=== PATIENT | female | born 1985 | race Hispanic/Latino ===

== ENCOUNTER 2018-02-28 17:55 | Emergency (ER) | payer OTHER ==
[~2018-02-28] VITALS: Ht 160 cm; Wt 68.0 kg
--- OUTSIDE RECORDS SUMMARY | 2018-02-28 17:57 | XMS REPORT | Clinical Summary ---
Author Author [facility] Organization [facility] Address Unknown Phone Unavailable Care Team Providers Care Mill Manager Name Role Phone PCP Unavailable Allergies Active Allergy Reactions Severity Noted Date Comments Ibuprofen Swelling Medium 12/24/2017 "My face swells up." Metoclopramide Hcl Other (See Comments) Low 12/24/2017 "anxitey, anger." Ketorolac GI Intolerance Low 12/24/2017 "cramps and diarhea." Current Medications Prescription Sig. Disp. Refills Start End Date Status Date methocarbamol (ROBAXIN) Take 1 tablet (500 mg 20 tablet 0 12/26/19 Active 500 MG tablet total) by mouth 4 (four) 18 times a day as needed for muscle spasms for up to 20 doses. traMADol (ULTRAM) 50 mg Take 1 tablet (50 mg 10 tablet 0 12/26/19 12/29/19 tablet total) by mouth every 6 18 18 (six) hours as needed for moderate pain for up to 10 doses. Active Problems Not on file Encounters Date Type Specialty Care Team Description 12/24/2017 Emergency Emergency Medicine Michel Galeano, MARGE-C Acute left-sided low back - Xin Palmer MD pain with left-sided 12/25/2017 sciatica (Primary Dx) after 02/27/2017 Social History Tobacco Use Types Packs/Day Years Used Date Never Smoker Smokeless Tobacco: Never Used Alcohol Use Drinks/Week oz/Week Comments No Sex Assigned at Date Recorded Not on file Last Filed Vital Signs Vital Sign Reading Time Taken Blood Pressure 108/68 12/24/2017 11:42 PM CDT Pulse 86 12/24/2017 11:42 PM CDT Temperature 36.9 C (98.4 F) 12/24/2017 11:42 PM CDT Respiratory Rate 16 12/24/2017 11:42 PM CDT Oxygen Saturation 100% 12/24/2017 11:42 PM CDT Inhaled Oxygen - - Concentration Weight 66.2 kg (146 lb) 12/24/2017 11:39 PM CDT Height 157.5 cm (5' 2") 12/24/2017 11:39 PM CDT Body Mass Index 26.7 12/24/2017 11:39 PM CDT Plan of Treatment Not on file Procedures Procedure Name Priority Date/Time Associated Diagnosis Comments URINALYSIS SCREEN AND Routine 12/25/2017 Results for this MICROSCOPY, WITH REFLEX 12:50 AM CDT procedure are in the TO CULTURE results section. HCG QUALITATIVE, URINE Routine 12/25/2017 Results for this SCREEN 12:50 AM CDT procedure are in the results section. after 02/27/2017 Results * Urinalysis screen and microscopy, with reflex to culture (12/25/2017 12:50 AM) Specimen site Clean catch [facility] DEPARTMENT OF PATHOLOGY AND GENOMIC MEDICINE Color, UA Yellow [facility] DEPARTMENT OF PATHOLOGY AND GENOMIC MEDICINE Appearance, UA Clear [facility] DEPARTMENT OF PATHOLOGY AND GENOMIC MEDICINE Specific gravity, UA 1.012 1.001 - 1.035 [facility] DEPARTMENT OF PATHOLOGY AND GENOMIC MEDICINE pH, UA 6.0 5.0 - 8.5 [facility] DEPARTMENT OF PATHOLOGY AND GENOMIC MEDICINE Protein, UA Negative Negative [facility] DEPARTMENT OF PATHOLOGY AND GENOMIC MEDICINE Glucose, UA Negative Negative [facility] DEPARTMENT OF PATHOLOGY AND GENOMIC MEDICINE Ketones, UA Negative Negative [facility] DEPARTMENT OF PATHOLOGY AND GENOMIC MEDICINE Bilirubin, UA Negative Negative [facility] DEPARTMENT OF PATHOLOGY AND GENOMIC MEDICINE Blood, UA Negative Negative [facility] DEPARTMENT OF PATHOLOGY AND GENOMIC MEDICINE Nitrite, UA Negative Negative [facility] DEPARTMENT OF PATHOLOGY AND GENOMIC MEDICINE Urobilinogen, UA Negative <2.0 [facility] DEPARTMENT OF PATHOLOGY AND GENOMIC MEDICINE Leukocyte esterase, UA Negative Negative [facility] DEPARTMENT OF PATHOLOGY AND GENOMIC MEDICINE Epithelial cells, UA Many /HPF [facility] DEPARTMENT OF PATHOLOGY AND GENOMIC MEDICINE Round epithelial cells, Few 0 - 1 /HPF [facility] DEPARTMENT OF UA PATHOLOGY AND GENOMIC MEDICINE WBC, UA 0-5 0 - 4 /HPF [facility] DEPARTMENT OF PATHOLOGY AND GENOMIC MEDICINE RBC, UA 0-5 0 - 5 /HPF [facility] DEPARTMENT OF PATHOLOGY AND GENOMIC MEDICINE Bacteria, UA Trace None seen [facility] DEPARTMENT OF PATHOLOGY AND GENOMIC MEDICINE Yeast, UA None seen [facility] DEPARTMENT OF PATHOLOGY AND GENOMIC MEDICINE Yeast with pseudohyphae, None seen [facility] DEPARTMENT OF PATHOLOGY AND GENOMIC MEDICINE Specimen Urine Performing Organization Address City/[facility]/Zipcode Phone Number [facility] [place] [address] [place] [address] PATHOLOGY AND GENOMIC MEDICINE * hCG qualitative, urine screen (12/25/2017 12:50 AM) hCG qualitative, urine Negative Negative [facility] DEPARTMENT OF Comment: PATHOLOGY AND The manufacturers stated GENOMIC MEDICINE sensitivity of HcG test for serum is >/=10 mIU/ml and urine is >/=20mIU/ml. Specimen Urine Performing Organization Address [facility] Phone Number [facility] [place] [address] [place] [address] PATHOLOGY AND GENOMIC MEDICINE after 02/27/2017 Insurance Payer Benefit Subscriber ID Type Phone Address Plan / Group MEDICAID MEDICAID xxxxxxxxx Medicaid
--- OUTSIDE RECORDS SUMMARY | 2018-02-28 17:58 | XMS REPORT | Summary of Care ---
Author Author [facility] Organization [facility] Address Unknown Phone Unavailable Encounter NATANAEL Rogel(DALTON) [id number] Date(s): 02/20/15 - 02/20/15 [facility] [address], [place], [place] [address]- [phone] Discharge Diagnosis: Acute back pain Discharge Disposition: Home Attending Physician: Ovi Gomze MD Vital Signs Most recent to 1 2 oldest [Reference Range]: Temperature Oral 98 DegF 98.2 DegF [96.4-99.1 DegF] (02/20/15 3:10 PM) (02/20/15 10:41 AM) Blood Pressure 115/76 mmHg 128/77 mmHg [90-140/60-90 mmHg] (02/20/15 3:10 PM) (02/20/15 10:41 AM) Respiratory Rate 18 BRMIN 18 BRMIN [14-20 BRMIN] (02/20/15 3:10 PM) (02/20/15 10:41 AM) Peripheral Pulse 70 bpm 73 bpm Rate [60-100 bpm] (02/20/15 3:10 PM) (02/20/15 10:41 AM) Weight 75.455 kg (02/20/15 10:41 AM) Problem List Condition Effective Dates Status Health Status Informant Chronic back Active pain(Confirmed) Allergies, Adverse Reactions, Alerts Substance Reaction Severity Status Reglan Active Medications [place] 10/325 oral tablet 1 tab, Route: PO, Drug Form: TAB, Dosing Weight 75.455, kg, ONCE, STAT, Start da te: 02/20/15 12:20:00, Stop date: 02/20/15 12:20:00 Start Date: 02/20/15 Stop Date: 02/20/15 Status: Completed Saline Flush 0.9% 10 mL, Route: IVP, Drug Form: INJ, Dosing Weight 75.455, kg, PRN, PRN Line Flush , Start date: 02/20/15 11:01:00, Duration: 1 doses or times, Stop date: Limited # of times Notes: (Same as: BD Posiflush) Start Date: 02/20/15 Stop Date: 02/20/15 Status: Discontinued tramadol 50 mg oral tablet 50 mg=1 tab, PO, Q6H, PRN Pain, X 10 day, # 24 tab, 0 Refill(s) Start Date: 02/20/15 Stop Date: 03/02/15 Status: Ordered Results ELECTROLYTES Most recent to 1 oldest [Reference Range]: Sodium Lvl [135-145 140 mEq/L mEq/L] (02/20/15 11:29 AM) Potassium Lvl 3.9 mEq/L [3.5-5.1 mEq/L] (02/20/15 11:29 AM) Chloride Lvl [95-109 106 mEq/L mEq/L] (02/20/15 11:29 AM) CO2 [24-32 mEq/L] 28 mEq/L (02/20/15 11:29 AM) AGAP [10.0-20.0 9.9 mEq/L mEq/L] *LOW* (02/20/15 11:29 AM) CHEM PANEL Most recent to 1 oldest [Reference Range]: Creatinine Lvl 0.6 mg/dL [0.5-1.4 mg/dL] (02/20/15 11:29 AM) eGFR 125 mL/min/1.73m2 1 *NA* (02/20/15 11:29 AM) BUN [7-22 mg/dL] 7 mg/dL (02/20/15 11:29 AM) B/C Ratio [6-25] 12 (02/20/15 11:29 AM) Glucose Lvl [70-99 84 mg/dL mg/dL] (02/20/15 11:29 AM) Total Protein 7.1 g/dL [6.4-8.4 g/dL] (02/20/15 11:29 AM) Albumin Lvl [3.5-5.0 4.1 g/dL g/dL] (02/20/15 11:29 AM) Globulin [2.0-4.0 3.0 g/dL g/dL] (02/20/15 11:29 AM) A/G Ratio [0.7-1.6] 1.4 (02/20/15:29 AM) Calcium Lvl 8.7 mg/dL [8.5-10.5 mg/dL] (02/20/15 11:29 AM) ALT [0-65 unit/L] 38 unit/L (02/20/15:29 AM) AST [0-37 unit/L] 24 unit/L (02/20/15:29 AM) Alk Phos [39-136 96 unit/L unit/L] (02/20/15 11:29 AM) Bili Total [0.2-1.3 1.0 mg/dL mg/dL] (02/20/1529 AM) Lactic Acid Lvl 0.5 mMol/L [0.5-2.2 mMol/L] (02/20/15 11:29 AM) 1Result Comment: The eGFR is calculated using the CKD-EPI formula. In most young, healthy individuals the eGFR will be >90 mL/min/1.73m2. The eGFR declines with age. An eGFR of 60-89 may be normal in some populations, particularly the elderly, for whom the CKD-EPI formula has not been extensively validated. Use of the eGFR is not recommended in the following populations: Individuals with unstable creatinine concentrations, including patients and those with serious co-morbid conditions. Patients with extremes in muscle mass or diet. The data above are obtained from the National Kidney Disease Education Program ( NKDEP) which additionally recommends that when the eGFR is used in patients with extremes of body mass index for purposes of drug dosing, the eGFR should be mul tiplied by the estimated BMI. URINE CHEM Most recent to 1 oldest [Reference Range]: U Preg [Negative] Negative (02/20/15 12:25 PM) URINE AND STOOL Most recent to 1 oldest [Reference Range]: UA Turbidity [Clear] Clear (02/20/15 12:25 PM) UA Color [Yellow] Yellow *NA* (02/20/15 12:25 PM) UA pH [5.0-8.0] 6.5 (02/20/15 12:25 PM) UA Spec Grav 1.015 [<=1.030] (02/20/15 12:25 PM) UA Glucose [Negative Negative mg/dL mg/dL] (02/20/15 12:25 PM) UA Blood [Negative] Negative (02/20/15 12:25 PM) UA Ketones [Negative Negative mg/dL mg/dL] *NA* (02/20/15 12:25 PM) UA Protein [Negative Negative mg/dL mg/dL] (02/20/15 12:25 PM) UA Urobilinogen 0.2 EU/dL [0.1-1.0 EU/dL] (02/20/15 12:25 PM) UA Bili [Negative] Negative *NA* (02/20/15 12:25 PM) UA Leuk Est Negative [Negative] (02/20/15 12:25 PM) UA Nitrite Negative [Negative] (02/20/15 12:25 PM) UA WBC [None Seen] None Seen (02/20/15 12:25 PM) UA RBC [0-2] None Seen (02/20/15 12:25 PM) UA Bacteria [None None Seen Seen] (02/20/15 12:25 PM) UA Sq Epi [Few /LPF] Occasional /LPF (02/20/15 12:25 PM) HEMATOLOGY Most recent to 1 oldest [Reference Range]: WBC [3.7-10.4 K/CMM] 5.5 K/CMM (02/20/15 11:29 AM) RBC [4.20-5.40 3.90 M/CMM M/CMM] *LOW* (02/20/15 11:29 AM) Hgb [12.0-16.0 g/dL] 12.5 g/dL (02/20/15 11:29 AM) Hct [36.0-48.0 %] 37.4 % (02/20/15 11:29 AM) MCV [80.0-98.0 fL] 95.8 fL (02/20/15 11:29 AM) MCH [27.0-31.0 pg] 32.1 pg *HI* (02/20/15 11:29 AM) MCHC [32.0-36.0 33.5 g/dL g/dL] (02/20/15 11:29 AM) RDW [11.5-14.5 %] 13.8 % (02/20/15 1129 AM) Platelet [133-450 235 K/CMM K/CMM] (02/20/1529 AM) MPV [7.4-10.4 fL] 8.9 fL (02/20/15 AM) Segs [45.0-75.0 %] 64.5 % (02/20/15 AM) Lymphocytes 24.5 % [20.0-40.0 %] (02/20/15 AM) Monocytes [2.0-12.0 9.0 % %] (02/20/15 AM) Eosinophils [0.0-4.0 1.4 % %] (02/20/15 AM) Basophils [0.0-1.0 0.6 % %] (02/20/15 AM) Segs-Bands # 3.5 K/CMM [1.5-8.1 K/CMM] (02/20/1529 AM) Lymphocytes # 1.3 K/CMM [1.0-5.5 K/CMM] (02/20/15 11:29 AM) Monocytes # [0.0-0.8 0.5 K/CMM K/CMM] (02/20/15 11 AM) Eosinophils # 0.1 K/CMM [0.0-0.5 K/CMM] (02/20/15 1129 AM) Immunizations No data available for this section Procedures Procedure Date Related Diagnosis Body Site section Social History Social History Type Response Substance Abuse Use: None. Alcohol Current, Last use: occasional. Smoking Status Never smoker; Exposure to Tobacco Smoke None; Cigarette Smoking Last 365 Days No; Reg Smoking Cessation Counseling No Assessment and Plan No data available for this section
--- OUTSIDE RECORDS SUMMARY | 2018-02-28 17:58 | XMS REPORT | Summary of Care ---
Author Organization Unknown Address Unknown Phone Unavailable Encounter NATANAEL Rogel(DALTON) [id number] Date(s): 11/08/13 - 11/08/13 [facility] [id number] [place] [address] Discharge Diagnosis: Cholelithiasis Discharge Disposition: Home Physician Attending: Hasmukh Julian MD Reason for Visit RUQ/SIDE PAIN,NAUSEA Vital Signs Most recent to 1 oldest [Reference Range]: Height 160.02 cm (11/08/13 5:41 PM) Temperature Oral 98.4 DegF [96.4-99.1 DegF] (11/08/13 5:41 PM) Systolic Blood 119 mmHg Pressure [90-140 (11/08/13 5:41 PM) mmHg] Diastolic Blood 63 mmHg Pressure [60-90 (11/08/13 5:41 PM) mmHg] Respiratory Rate 18 BRMIN [14-20 BRMIN] (11/08/13 5:41 PM) Peripheral Pulse 69 bpm Rate [60-100 bpm] (11/08/13 5:41 PM) Weight 83.636 kg (11/08/13 5:41 PM) Body Mass Index 32.66 m2 (11/08/13 5:41 PM) Problem List No data available for this section Allergies, Adverse Reactions, Alerts Substance Reaction Severity Status NKDA Active Medications ketorolac 30 mg, 1 mL, Route: IVP, Drug form: INJ, ONCE, Dosing Weight 83.636, kg, Priorit y: STAT, Start date: 11/08/13 20:10:00, Stop date: 11/08/13 20:10:00 Notes: (Same as:Toradol) IV bolus must be given >15 seconds. Give IM administration slowly and deeply into the muscle. Not for use > 4 days Start Date: 11/08/13 Stop Date: 11/08/13 Status: Completed NS (Bolus) IV 1,000 mL, 1,000 ml/hr, Infuse Over: 1 hr, Route: IV, 1,000, Drug form: INJ, ONCE , Priority: STAT, Dosing Weight 83.636 kg, Start date: 11/08/13 20:10:00, Durati on: 1 doses or times, Stop date: 11/08/13 20:10:00 Start Date: 11/08/13 Stop Date: 11/08/13 Status: Completed Saline Flush 0.9% 5 mL, Route: IVP, Drug Form: INJ, Dosing Weight 83.636, kg, PRN, PRN Line Flush, Start date: 11/08/13 18:54:00, Duration: 24 hr, Stop date: 11/09/13 18:53:00 Notes: (Same as: BD Posiflush) Start Date: 11/08/13 Stop Date: 11/08/13 Status: Discontinued Ultram 50 mg oral tablet 50 mg=1 tab, PO, Q4H, pain, # 20 tab, 0 Refill(s) Start Date: 11/08/13 Status: Ordered Zofran 4 mg, 2 mL, Route: IVP, Drug form: INJ, ONCE, Dosing Weight 83.636, kg, Priority : STAT, Start date: 11/08/13 20:11:00, Stop date: 11/08/13 20:11:00 Notes: (Same as: Zofran) Start Date: 11/08/13 Stop Date: 11/08/13 Status: Completed Results ELECTROLYTES Most recent to 1 oldest [Reference Range]: Sodium Lvl [135-145 143 mEq/L mEq/L] (11/08/13 7:59 PM) Potassium Lvl 3.8 mEq/L [3.5-5.1 mEq/L] (11/08/13 7:59 PM) Chloride Lvl [95-109 108 mEq/L mEq/L] (11/08/13 7:59 PM) CO2 [24-32 mEq/L] 27 mEq/L (11/08/13 7:59 PM) AGAP [10.0-20.0 11.8 mEq/L mEq/L] (11/08/13 7:59 PM) CHEM PANEL Most recent to 1 oldest [Reference Range]: Creatinine Lvl 0.7 mg/dL [0.5-1.4 mg/dL] (11/08/13 7:59 PM) eGFR 120 mL/min/1.73m2 1 *NA* (11/08/13 7:59 PM) BUN [7-22 mg/dL] 16 mg/dL (11/08/13 7:59 PM) B/C Ratio [6-25] 23 (11/08/13 7:59 PM) Glucose Lvl [70-99 81 mg/dL 2 mg/dL] (11/08/13 7:59 PM) Total Protein 7.5 g/dL [6.4-8.4 g/dL] (11/08/13 7:59 PM) Albumin Lvl [3.5-5.0 4.2 g/dL g/dL] (11/08/13 7:59 PM) Globulin [2.0-4.0 3.3 g/dL g/dL] (11/08/13 7:59 PM) A/G Ratio [0.7-1.6] 1.3 (11/08/13 7:59 PM) Calcium Lvl 9.0 mg/dL [8.5-10.5 mg/dL] (11/08/13 7:59 PM) ALT [0-65 unit/L] 32 unit/L (11/08/13 7:59 PM) AST [0-37 unit/L] 19 unit/L (11/08/13 7:59 PM) Alk Phos [39-136 96 unit/L unit/L] (11/08/13 7:59 PM) Bili Total [0.2-1.3 0.8 mg/dL mg/dL] (11/08/13 7:59 PM) Lipase Lvl [73-393 157 unit/L unit/L] (11/08/13 7:59 PM) 1Result Comment: The eGFR is calculated using [...] be mul tiplied by the estimated BMI. 2Interpretive Data: Adult reference range values reflect the clinical guidelines of the [place] [employer]. URINE AND STOOL Most recent to 1 oldest [Reference Range]: UA Turbidity [Clear] Clear (11/08/13 7:59 PM) UA Color [Yellow] Yellow *NA* (11/08/13 7:59 PM) UA pH [5.0-8.0] 6.0 (11/08/13 7:59 PM) UA Spec Grav >=1.030 [<=1.030] *ABN* (11/08/13 7:59 PM) UA Glucose Negative [Negative] (11/08/13 7:59 PM) UA Blood [Negative] Negative (11/08/13 7:59 PM) UA Ketones Negative [Negative] *NA* (11/08/13 7:59 PM) UA Protein Negative [Negative] (11/08/13 7:59 PM) UA Urobilinogen 0.2 EU/dL [0.1-1.0 EU/dL] (11/08/13 7:59 PM) UA Bili [Negative] Negative *NA* (11/08/13 7:59 PM) UA Leuk Est Negative [Negative] (11/08/13 7:59 PM) UA Nitrite Negative [Negative] (11/08/13 7:59 PM) UA WBC [None Seen] None Seen (11/08/13 7:59 PM) UA RBC [0-2] None Seen (11/08/13 7:59 PM) UA Bacteria [None None Seen Seen] (11/08/13 7:59 PM) UA Sq Epi [Few /LPF] Rare /LPF (11/08/13 7:59 PM) Micro? Performed (11/08/13 7:59 PM) HEMATOLOGY Most recent to 1 oldest [Reference Range]: WBC [3.7-10.4 K/CMM] 8.0 K/CMM (11/08/13 7:59 PM) RBC [4.20-5.40 4.48 M/CMM M/CMM] (11/08/13 7:59 PM) Hgb [12.0-16.0 g/dL] 14.0 g/dL (11/08/13 7:59 PM) Hct [36.0-48.0 %] 40.6 % (11/08/13 7:59 PM) MCV [81.0-99.0 fL] 90.6 fL (11/08/13 7:59 PM) MCH [27.0-31.0 pg] 31.4 pg *HI* (11/08/13 7:59 PM) MCHC [32.0-36.0 34.6 g/dL g/dL] (11/08/13 7:59 PM) RDW [11.5-14.5 %] 13.2 % (11/08/13 7:59 PM) Platelet [133-450 185 K/CMM K/CMM] (11/08/13 7:59 PM) MPV [7.4-10.4 fL] 9.7 fL (11/08/13 7:59 PM) Segs [45.0-75.0 %] 63.9 % (11/08/13 7:59 PM) Lymphocytes 26.8 % [20.0-40.0 %] (11/08/13 7:59 PM) Monocytes [2.0-12.0 6.9 % %] (11/08/13 7:59 PM) Eosinophils [0.0-4.0 1.9 % %] (11/08/13 7:59 PM) Basophils [0.0-1.0 0.5 % %] (11/08/13 7:59 PM) Segs-Bands # 5.1 K/CMM [1.5-8.1 K/CMM] (11/08/13 7:59 PM) Lymphocytes # 2.2 K/CMM [1.0-5.5 K/CMM] (11/08/13 7:59 PM) Monocytes # [0.0-0.8 0.6 K/CMM K/CMM] (11/08/13 7:59 PM) Eosinophils # 0.2 K/CMM [0.0-0.5 K/CMM] (11/08/13 7:59 PM) Medications Administered During Your Visit No data available for this section Immunizations No data available for this section
--- OUTSIDE RECORDS SUMMARY | 2018-02-28 17:58 | XMS REPORT | CCD ---
Author Author Auto Generated Organization [facility] Address Unknown Phone Unavailable Care Team Providers Care Bench Press Operator Name Role Phone Wilfrido Teixeira CP Allergies, Adverse Reactions, Alerts Substance Reaction Status NKDA Active Vital Signs Most recent to oldest [Reference Range]: 1 Height 157.48 cm (10/09/2011 06:47:00) Weight 82.784 kg (10/09/2011 06:47:00) Results URINALYSIS Most recent to oldest [Reference Range]: 1 UA Turbidity [Clear] Clear (10/09/2011 07:48:00) UA Color [Yellow] Yellow *NA* (10/09/2011 07:48:00) UA pH [5.0-8.0] 5.0 (10/09/2011 07:48:00) UA Spec Grav [<=1.030] 1.025 (10/09/2011 07:48:00) UA Glucose [Negative mg/dL] Negative mg/dL (10/09/2011 07:48:00) UA Blood [Negative] Negative (10/09/2011 07:48:00) UA Ketones [Negative mg/dL] Negative mg/dL *NA* (10/09/2011 07:48:00) UA Protein [Negative mg/dL] Negative mg/dL (10/09/2011 07:48:00) UA Urobilinogen [0.1-1.0 EU/dL] 0.2 EU/dL (10/09/2011 07:48:00) UA Bili [Negative] Negative *NA* (10/09/2011 07:48:00) UA Leuk Est [Negative] Negative (10/09/2011 07:48:00) UA Nitrite [Negative] Negative (10/09/2011 07:48:00) Micro? Not Indicated *NA* (10/09/2011 07:48:00) CHEMISTRY Most recent to oldest [Reference Range]: 1 Sodium Lvl [135-145 mEq/L] 138 mEq/L (10/09/2011 07:25:00) Potassium Lvl [3.5-5.1 mEq/L] 3.9 mEq/L (10/09/2011 07:25:00) Chloride Lvl [95-109 mEq/L] 105 mEq/L (10/09/2011:25:00) CO2 [24-32 mEq/L] 27 mEq/L (10/09/2011:25:00) AGAP [10.0-20.0 mEq/L] 9.9 mEq/L *LOW* (10/09/2011:25:00) Creatinine Lvl [0.5-1.4 mg/dL] 0.8 mg/dL (10/09/2011:25:00) BUN [7-22 mg/dL] 12 mg/dL (10/09/2011:25:00) Glucose Lvl [70-99 mg/dL] 99 mg/dL 1 (10/09/2011:25:00) Calcium Lvl [8.5-10.5 mg/dL] 8.8 mg/dL (10/09/2011:25:00) 1Interpretive Data: Adult reference range values reflect the clinical guidelinesof the [place] [employer]. HEMATOLOGY Most recent to oldest [Reference Range]: 1 WBC [3.7-10.4 K/CMM] 5.8 K/CMM (10/09/2011:25:00) RBC [4.20-5.40 M/CMM] 4.39 M/CMM (10/09/2011:25:00) Hgb [12.0-16.0 g/dL] 12.0 g/dL (10/09/2011:25:00) Hct [36.0-48.0 %] 36.7 % (10/09/2011:25:00) MCV [81.0-99.0 fL] 83.5 fL (10/09/2011:25:00) MCH [27.0-31.0 pg] 27.4 pg (10/09/2011:25:00) MCHC [32.0-36.0 g/dL] 32.8 g/dL (10/09/2011 07:25:00) RDW [11.5-14.5 %] 17.9 % *HI* (10/09/2011 07:25:00) Platelet [133-450 K/CMM] 220 K/CMM (10/09/2011 07:25:00) MPV [7.4-10.4 fL] 9.4 fL (10/09/2011 07:25:00) Segs [45.0-75.0 %] 59.8 % (10/09/2011 07:25:00) Lymphocytes [20.0-40.0 %] 30.4 % (10/09/2011 07:25:00) Monocytes [2.0-12.0 %] 7.2 % (10/09/2011 07:25:00) Eosinophils [0.0-4.0 %] 1.8 % (10/09/2011 07:25:00) Basophils [0.0-1.0 %] 0.8 % (10/09/2011 07:25:00) Segs-Bands # [1.5-8.1 K/CMM] 3.4 K/CMM (10/09/2011 07:25:00) Lymphocytes # [1.0-5.5 K/CMM] 1.7 K/CMM (10/09/2011 07:25:00) Monocytes # [0.0-0.8 K/CMM] 0.4 K/CMM (10/09/2011 07:25:00) Eosinophils # [0.0-0.5 K/CMM] 0.1 K/CMM (10/09/2011 07:25:00) Basophils # [0.0-0.2 K/CMM] 0.0 K/CMM (10/09/2011 07:25:00) IMMUNOLOGY Most recent to oldest [Reference Range]: 1 CDC-HIV 1/2 Ab [Negative] Negative *NA* (10/09/2011 07:25:00)
--- OUTSIDE RECORDS SUMMARY | 2018-02-28 17:58 | XMS REPORT | Summary of Care ---
Author Organization Unknown Address Unknown Phone Unavailable Encounter [facility](DALTON) [id number] Date(s): 08/10/14 - 08/10/14 [facility] [address] [place] [address]- Discharge Disposition: Not Seen Physician Attending: Sawyer Gordon MD Vital Signs Most recent to 1 oldest [Reference Range]: Height 160.02 cm (08/10/14 3:28 PM) Temperature Oral 99.4 DegF [96.4-99.1 DegF] *HI* (08/10/14 3:28 PM) Blood Pressure 119/65 mmHg [90-140/60-90 mmHg] (08/10/14 3:28 PM) Respiratory Rate 18 BRMIN [14-20 BRMIN] (08/10/14 3:28 PM) Peripheral Pulse 77 bpm Rate [60-100 bpm] (08/10/14 3:28 PM) Weight 80 kg (08/10/14 3:28 PM) Body Mass Index 31.24 m2 (08/10/14 3:28 PM) Problem List No data available for this section Allergies, Adverse Reactions, Alerts Substance Reaction Severity Status Reglan Active Medications No data available for this section Results No data available for this section Immunizations [...]
--- OUTSIDE RECORDS SUMMARY | 2018-02-28 17:58 | XMS REPORT | Summary of Care ---
Author Author [facility] Organization [facility] Address Unknown Phone Unavailable Encounter NATANAEL Rogel([place]) [id number] Date(s): 01/17/15 - 01/17/15 [facility] [address], [place], [place] [address]- [phone] Discharge Diagnosis: Back pain Discharge Disposition: Home Attending Physician: Josemanuel Read MD Vital Signs Most recent to 1 2 oldest [Reference Range]: Height 160.02 cm (01/17/15 5:41 PM) Most recent to 1 2 oldest [Reference Range]: Temperature Oral 98.6 DegF 98.2 DegF [96.4-99.1 DegF] (01/17/15 9:58 PM) (01/17/15 5:41 PM) Most recent to 1 2 oldest [Reference Range]: Blood Pressure 105/64 mmHg 141/91 mmHg [90-140/60-90 mmHg] (01/17/15 9:58 PM) *HI* (01/17/15 5:41 PM) Most recent to 1 2 oldest [Reference Range]: Respiratory Rate 18 BRMIN 18 BRMIN [14-20 BRMIN] (01/17/15 9:58 PM) (01/17/15 5:41 PM) Most recent to 1 2 oldest [Reference Range]: Peripheral Pulse 64 bpm 90 bpm Rate [60-100 bpm] (01/17/15 9:58 PM) (01/17/15 5:41 PM) Most recent to 1 2 oldest [Reference Range]: Weight 76.364 kg (01/17/15 5:41 PM) Most recent to 1 2 oldest [Reference Range]: Body Mass Index 29.82 m2 (01/17/15 5:41 PM) Problem List Condition Effective Dates Status Health Status Informant Chronic back Active pain(Confirmed) Allergies, Adverse Reactions, Alerts Substance Reaction Severity Status Reglan Active Medications ketOROLAC 60 mg, 2 mL, Route: IM, Drug form: INJ, ONCE, Dosing Weight 76.364, kg, Priority : STAT, Start date: 01/17/15 20:44:00, Stop date: 01/17/15 20:44:00 Notes: (Same as:Toradol) IV bolus must be given >15 seconds. Give IM administration slowly and deeply into the muscle.Not for use > 4 days MEDICATION WASTE Product Size: 60 mgProduct Wasted: ___ mg Start Date: 01/17/15 Stop Date: 01/17/15 Status: Completed Milton 5/325 oral tablet 2 tab, Route: PO, Drug Form: TAB, Dosing Weight 76.364, kg, ONCE, STAT, Start da te: 01/17/15 20:44:00, Stop date: 01/17/15 20:44:00 Notes: (Same as: Milton 325/5) Do not exceed 4gm/day of acetaminophen. Start Date: 01/17/15 Stop Date: 01/17/15 Status: Completed Ultram 50 mg oral tablet 50 mg=1 tab, PO, Q6H, PRN for pain, # 20 tab, 0 Refill(s) Start Date: 01/17/15 Stop Date: 01/17/15 Status: Completed Valium 5 mg oral tablet 5 mg=1 tab, PO, BID, PRN Anxiety, # 14 tab, 0 Refill(s) Start Date: 01/17/15 Stop Date: 01/17/15 Status: Completed Results No data available for this section [...]
--- OUTSIDE RECORDS SUMMARY | 2018-02-28 17:58 | XMS REPORT | Summary of Care ---
Author Organization Unknown Address Unknown Phone Unavailable Encounter NATANAEL Rogel([place]) [id number] Date(s): 01/03/14 - 01/04/14 [facility] [id number] [place] [address] Discharge Diagnosis: Acute back pain Discharge Diagnosis: Abdominal pain Discharge Disposition: Home Physician Attending: Josemanuel Read MD Reason for Visit FLANK PAIN Vital Signs 1 2 3 Most recent to oldest [Reference Range]: 160.02 cm (01/03/14 10:23 PM) 160.02 cm (01/03/14 12:58 PM) Height 97.0 DegF (01/04/14 1:01 AM) 97.6 DegF (01/03/14 5:47 PM) 97.7 DegF (01/03/14 2:28 PM) Temperature Oral [96.4-99.1 DegF] 116 mmHg (01/04/14 1:01 AM) 112 mmHg (01/03/14 9:57 PM) 126 mmHg (01/03/14 5:47 PM) Systolic Blood Pressure [90-140 mmHg] 75 mmHg (01/04/14 1:01 AM) 71 mmHg (01/03/14 9:57 PM) 83 mmHg (01/03/14 5:47 PM) Diastolic Blood Pressure [60-90 mmHg] 16 BRMIN (01/04/14 1:01 AM) 18 BRMIN (01/03/14 9:57 PM) 18 BRMIN (01/03/14 5:47 PM) Respiratory Rate [14-20 BRMIN] 71 bpm (01/04/14 1:01 AM) 64 bpm (01/03/14 9:57 PM) 65 bpm (01/03/14 5:47 PM) Peripheral Pulse Rate [60-100 bpm] 82.273 kg (01/03/14 10:23 PM) 82.273 kg (01/03/14 12:58 PM) Weight 32.13 m2 (01/03/14 10:23 PM) 32.13 m2 (01/03/14 12:58 PM) Body Mass Index Problem List No data available for this section Allergies, Adverse Reactions, Alerts Substance Reaction Severity Status Reglan Active Medications ketorolac 30 mg, 1 mL, Route: IVP, Drug form: INJ, ONCE, Dosing Weight 82.273, kg, Priorit y: STAT, Start date: 01/04/14 0:24:00, Stop date: 01/04/14 0:24:00 Notes: (Same as:Toradol) IV bolus must be given >15 seconds. Give IM administration slowly and deeply into the muscle. Not for use > 4 days Start Date: 01/04/14 Stop Date: 01/04/14 Status: Completed morphine Sulfate 4 mg, 1 mL, Route: IVP, Drug form: INJ, ONCE, Dosing Weight 82.273, kg, Priority : STAT, Start date: 01/03/14 22:16:00, Stop date: 01/03/14 22:16:00 Notes: (Same as:MORPhine Sulfate) Start Date: 01/03/14 Stop Date: 01/03/14 Status: Completed [place] 5/325 oral tablet 1 tab, PO, Q6H, # 12 tab, 0 Refill(s) Start Date: 01/04/14 Status: Ordered ondansetron 4 mg, 2 mL, Route: IVP, Drug form: INJ, ONCE, Dosing Weight 82.273, kg, Priority : STAT, Start date: 01/03/14 22:16:00, Stop date: 01/03/14 22:16:00 Notes: (Same as: Zofran) Start Date: 01/03/14 Stop Date: 01/03/14 Status: Completed ondansetron 4 mg oral tablet, disintegrating 4 mg=1 tab, PO, TID, Nausea / Vomiting, Dissolve tab under tongue, # 10 tab, 0 R efill(s) Special Instructions: Dissolve tab under tongue Start Date: 01/04/14 Stop Date: 01/07/14 Status: Ordered Saline Flush 0.9% 10 mL, Route: IVP, Drug Form: INJ, Dosing Weight 82.273, kg, PRN, PRN Line Flush , Start date: 01/03/14 14:31:00, Duration: 1 day, Stop date: 01/04/14 14:30:00 Notes: (Same as: BD Posiflush) Start Date: 01/03/14 Stop Date: 01/04/14 Status: Discontinued Saline Flush 0.9% 10 mL, Route: IVP, Drug Form: INJ, Dosing Weight 82.273, kg, PRN, PRN Line Flush , Start date: 01/03/14 22:16:00, Duration: 30 day, Stop date: 02/02/14 22:15:00 Notes: (Same as: BD Posiflush) Start Date: 01/03/14 Stop Date: 01/04/14 Status: Discontinued Sodium Chloride 0.9% (Bolus) IV 1,000 mL, 1000 ml/hr, Infuse Over: 1 hr, Route: IV, 1,000, Drug form: INJ, ONCE, Priority: STAT, Dosing Weight 82.273 kg, Start date: 01/03/14 22:16:00, Duratio n: 1 doses or times, Stop date: 01/03/14 22:16:00 Start Date: 01/03/14 Stop Date: 01/03/14 Status: Completed Results ELECTROLYTES Most recent to 1 oldest [Reference Range]: Sodium Lvl [135-145 138 mEq/L mEq/L] (01/03/14 5:54 PM) Potassium Lvl 3.8 mEq/L [3.5-5.1 mEq/L] (01/03/14 5:54 PM) Chloride Lvl [95-109 104 mEq/L mEq/L] (01/03/14 5:54 PM) CO2 [24-32 mEq/L] 28 mEq/L (01/03/14 5:54 PM) AGAP [10.0-20.0 9.8 mEq/L mEq/L] *LOW* (01/03/14 5:54 PM) CHEM PANEL Most recent to 1 oldest [Reference Range]: Creatinine Lvl 0.6 mg/dL [0.5-1.4 mg/dL] (01/03/14 5:54 PM) eGFR 126 mL/min/1.73m2 1 *NA* (01/03/14 5:54 PM) BUN [7-22 mg/dL] 11 mg/dL (01/03/14 5:54 PM) B/C Ratio [6-25] 18 (01/03/14 5:54 PM) Glucose Lvl [70-99 85 mg/dL 2 mg/dL] (01/03/14 5:54 PM) Total Protein 8.1 g/dL [6.4-8.4 g/dL] (01/03/14 5:54 PM) Albumin Lvl [3.5-5.0 4.3 g/dL g/dL] (01/03/14 5:54 PM) Globulin [2.0-4.0 3.8 g/dL g/dL] (01/03/14 5:54 PM) A/G Ratio [0.7-1.6] 1.1 (01/03/14 5:54 PM) Calcium Lvl 9.3 mg/dL [8.5-10.5 mg/dL] (01/03/14 5:54 PM) ALT [0-65 unit/L] 32 unit/L (01/03/14 5:54 PM) AST [0-37 unit/L] 24 unit/L (01/03/14 5:54 PM) Alk Phos [39-136 99 unit/L unit/L] (01/03/14 5:54 PM) Bili Total [0.2-1.3 1.2 mg/dL mg/dL] (01/03/14 5:54 PM) Amylase Lvl [25-115 63 unit/L unit/L] (01/03/14 5:54 PM) Lipase Lvl [73-393 95 unit/L unit/L] (01/03/14 5:54 PM) 1Result Comment: The eGFR is calculated [...] values reflect the clinical guidelines of the [place] [employer]. URINE CHEM Most recent to 1 oldest [Reference Range]: U Preg [Negative] Negative (01/03/14 11:10 PM) URINE AND STOOL Most recent to 1 oldest [Reference Range]: UA Turbidity [Clear] Clear (01/03/14 8:44 PM) UA Color [Yellow] Yellow *NA* (01/03/14 8:44 PM) UA pH [5.0-8.0] 6.0 (01/03/14 8:44 PM) UA Spec Grav 1.015 [<=1.030] (01/03/14 8:44 PM) UA Glucose Negative [Negative] (01/03/14 8:44 PM) UA Blood [Negative] Large *ABN* (01/03/14 8:44 PM) UA Ketones Negative [Negative] *NA* (01/03/14 8:44 PM) UA Protein Negative [Negative] (01/03/14 8:44 PM) UA Urobilinogen 0.2 EU/dL [0.1-1.0 EU/dL] (01/03/14 8:44 PM) UA Bili [Negative] Negative *NA* (01/03/14 8:44 PM) UA Leuk Est Negative [Negative] (01/03/14 8:44 PM) UA Nitrite Negative [Negative] (01/03/14 8:44 PM) UA WBC [None Seen] None Seen (01/03/14 8:44 PM) UA RBC [0-2 /HPF] 0-2 /HPF (01/03/14 8:44 PM) UA Bacteria [None None Seen Seen] (01/03/14 8:44 PM) UA Sq Epi [Few /LPF] Rare /LPF (01/03/14 8:44 PM) HEMATOLOGY Most recent to 1 oldest [Reference Range]: WBC [3.7-10.4 K/CMM] 8.2 K/CMM (01/03/14 5:54 PM) RBC [4.20-5.40 4.64 M/CMM M/CMM] (01/03/14 5:54 PM) Hgb [12.0-16.0 g/dL] 15.0 g/dL (01/03/14 5:54 PM) Hct [36.0-48.0 %] 42.4 % (01/03/14 5:54 PM) MCV [80.0-98.0 fL] 91.3 fL (01/03/14 5:54 PM) MCH [27.0-31.0 pg] 32.3 pg *HI* (01/03/14 5:54 PM) MCHC [32.0-36.0 35.3 g/dL g/dL] (01/03/14 5:54 PM) RDW [11.5-14.5 %] 12.9 % (01/03/14 5:54 PM) Platelet [133-450 214 K/CMM K/CMM] (01/03/14 5:54 PM) MPV [7.4-10.4 fL] 9.1 fL (01/03/14 5:54 PM) Segs [45.0-75.0 %] 65.6 % (01/03/14 5:54 PM) Lymphocytes 26.8 % [20.0-40.0 %] (01/03/14 5:54 PM) Monocytes [2.0-12.0 5.2 % %] (01/03/14 5:54 PM) Eosinophils [0.0-4.0 2.0 % %] (01/03/14 5:54 PM) Basophils [0.0-1.0 0.4 % %] (01/03/14 5:54 PM) Segs-Bands # 5.3 K/CMM [1.5-8.1 K/CMM] (01/03/14 5:54 PM) Lymphocytes # 2.2 K/CMM [1.0-5.5 K/CMM] (01/03/14 5:54 PM) Monocytes # [0.0-0.8 0.4 K/CMM K/CMM] (01/03/14 5:54 PM) Eosinophils # 0.2 K/CMM [0.0-0.5 K/CMM] (01/03/14 5:54 PM) Medications Administered During Your Visit No data available for this section Immunizations No data available for this section Procedures Procedure Type Body Site Date of Procedure Related Diagnosis section Social History Social History Type Response Substance Abuse Use: None Alcohol Use: Current Smoking Status Never smoker, Exposure to Tobacco Smoke None, Cigarette Smoking Last 365 Days No, Reg Smoking Cessation Counseling No
--- OUTSIDE RECORDS SUMMARY | 2018-02-28 17:58 | XMS REPORT | Continuity of Care Document ---
Author Author [facility] Interface Address Unknown Phone Unavailable Problems Problem Status Onset Date Classification Date Reported Comments Source Discharge Diagnosis: Withdrawal from opioids 04/08/2015 04/11/2015 [facility] URINARY SYMPTOMS Active 04/07/2015 [facility] Discharge Diagnosis: Acute back pain 02/20/2015 02/23/2015 [facility] OTHER Active 02/18/2015 [facility] Discharge Diagnosis: Back pain 01/17/2015 01/20/2015 [facility] FELL, BACK PAIN Active 01/15/2015 [facility] VAGINAL BLEEDING Active 08/10/2014 [facility] Discharge Diagnosis: Acute back pain 01/04/2014 01/07/2014 [facility] Discharge Diagnosis: Abdominal pain 01/04/2014 01/07/2014 [facility] FLANK PAIN Active 01/03/2014 [facility] Discharge Diagnosis: Cholelithiasis 11/08/2013 11/11/2013 [facility] RUQ/SIDE PAIN,NAUSEA Active 11/08/2013 [facility] WEAKNESS, DIZZINESS Active 10/09/2011 [facility] Chronic back pain Active Problem 04/11/2015 [facility] Medications Medication Details Route Status Patient Instructions Ordering Provider Order Date Source Naproxen sodium 550 MG Oral Tablet [Anaprox] 550 mg=1 tab, PO, BID, PRN for pain, X 10 day, # 30 tab, 0 Refill(s) Active 04/08/2015 [facility] doxylamine succinate 25 MG Oral Tablet [Unisom] 25 mg=1 tab, PO, Bedtime, PRN for sleep, X 7 day, # 7 tab, 0 Refill(s) Active 04/08/2015 [facility] Ondansetron 4 MG Disintegrating Tablet [Zofran] 4 mg=1 tab, PO, TID, PRN Nausea and Vomiting, Dissolve tab under tongue, X 3 day, # 15 tab, 0 Refill(s) Active 04/08/2015 [facility] Zofran ODT 4 mg, Route: PO, Drug form: TABDIS, ONCE, Dosing Weight 75, kg, Priority: STAT, Start date: 04/08/15 8:54:00, Stop date: 04/08/15 8:54:00 Inactive 04/08/2015 [facility] tramadol hydrochloride 50 MG Oral Tablet 50 mg=1 tab, PO, Q6H, PRN Pain, X 10 day, # 24 tab, 0 Refill(s) Active 02/20/2015 [facility] Acetaminophen 325 MG / Hydrocodone Bitartrate 10 MG Oral Tablet [Swansea 10/325] 1 tab, Route: PO, Drug Form: TAB, Dosing Weight 75.455, kg, ONCE, STAT, Start date: 02/20/15 12:20:00, Stop date: 02/20/15 12:20:00 Inactive 02/20/2015 [facility] Saline Flush 0.9% 10 mL, Route: IVP, Drug Form: INJ, Dosing Weight 75.455, kg, PRN, PRN Line Flush, Start date: 02/20/15 11:01:00, Duration: 1 doses or times, Stop date: Limited # of timesNotes: (Same as: BD Posiflush) Inactive 02/20/2015 [facility] tramadol hydrochloride 50 MG Oral Tablet [Ultram] 50 mg=1 tab, PO, Q6H, PRN for pain, # 20 tab, 0 Refill(s) Inactive 01/18/2015 [facility] Diazepam 5 MG Oral Tablet [Valium] 5 mg=1 tab, PO, BID, PRN Anxiety, # 14 tab, 0 Refill(s) Inactive 01/18/2015 [facility] Acetaminophen 325 MG / Hydrocodone Bitartrate 5 MG Oral Tablet [Swansea 5/325] 2 tab, Route: PO, Drug Form: TAB, Dosing Weight 76.364, kg, ONCE, STAT, Start date: 01/17/15 20:44:00, Stop date: 01/17/15 20:44:00Notes: (Same as: [place]sea 325/5) Do not exceed 4gm/day of acetaminophen. Inactive 01/18/2015 [facility] Ketorolac 60 mg, 2 mL, Route: IM, Drug form: INJ, ONCE, Dosing Weight 76.364, kg, Priority: STAT, Start date: 01/17/15 20:44:00, Stop date: 01/17/15 20:44:00Notes: (Same as:Toradol) IV bolus must be given >15 seconds. Give IM administration slowly and deeply into the muscle. Not for use > 4 days MEDICATION WASTE Product Size: 60 mg Product Wasted: ___ mg Inactive 01/18/2015 [facility] Ondansetron 4 MG Disintegrating Tablet 4 mg=1 tab, PO, TID, Nausea / Vomiting, Dissolve tab under tongue, # 10 tab, 0 Refill(s)Special Instructions: Dissolve tab under tongue Active 01/04/2014 [facility] Acetaminophen 325 MG / Hydrocodone Bitartrate 5 MG Oral Tablet [Swansea 5/325] 1 tab, PO, Q6H, # 12 tab, 0 Refill(s) Active 01/04/2014 [facility] Ketorolac 30 mg, 1 mL, Route: IVP, Drug form: INJ, ONCE, Dosing Weight 82.273, kg, Priority: STAT, Start date: 01/04/14 0:24:00, Stop date: 01/04/14 0:24:00Notes: (Same as:Toradol) IV bolus must be given >15 seconds. Give IM administration slowly and deeply into the muscle. Not for use > 4 days Inactive 01/04/2014 [facility] Ondansetron 4 mg, 2 mL, Route: IVP, Drug form: INJ, ONCE, Dosing Weight 82.273, kg, Priority: STAT, Start date: 01/03/14 22:16:00, Stop date: 01/03/14 22:16:00Notes: (Same as: Zofran) Inactive 01/04/2014 [facility] Morphine 4 mg, 1 mL, Route: IVP, Drug form: INJ, ONCE, Dosing Weight 82.273, kg, Priority: STAT, Start date: 01/03/14 22:16:00, Stop date: 01/03/14 22:16:00Notes: (Same as:MORPhine Sulfate) Inactive 01/04/2014 [facility] Saline Flush 0.9% 10 mL, Route: IVP, Drug Form: INJ, Dosing Weight 82.273, kg, PRN, PRN Line Flush, Start date: 01/03/14 22:16:00, Duration: 30 day, Stop date: 02/02/14 22:15:00Notes: (Same as: BD Posiflush) No Longer Active 01/04/2014 [facility] Sodium Chloride 0.154 MEQ/ML Injectable Solution 1,000 mL, 1000 ml/hr, Infuse Over: 1 hr, Route: IV, 1,000, Drug form: INJ, ONCE, Priority: STAT, Dosing Weight 82.273 kg, Start date: 01/03/14 22:16:00, Duration: 1 doses or times, Stop date: 01/03/14 22:16:00 Inactive 01/04/2014 [facility] Saline Flush 0.9% 10 mL, Route: IVP, Drug Form: INJ, Dosing Weight 82.273, kg, PRN, PRN Line Flush, Start date: 01/03/14 14:31:00, Duration: 1 day, Stop date: 01/04/14 14:30:00Notes: (Same as: BD Posiflush) No Longer Active 01/03/2014 [facility] tramadol hydrochloride 50 MG Oral Tablet [Ultram] 50 mg=1 tab, PO, Q4H, pain, # 20 tab, 0 Refill(s) Active 11/09/2013 [facility] Zofran 4 mg, 2 mL, Route: IVP, Drug form: INJ, ONCE, Dosing Weight 83.636, kg, Priority: STAT, Start date: 11/08/13 20:11:00, Stop date: 11/08/13 20:11:00Notes: (Same as: Zofran) Inactive 11/09/2013 [facility] Ketorolac 30 mg, 1 mL, Route: IVP, Drug form: INJ, ONCE, Dosing Weight 83.636, kg, Priority: STAT, Start date: 11/08/13 20:10:00, Stop date: 11/08/13 20:10:00Notes: (Same as:Toradol) IV bolus must be given >15 seconds. Give IM administration slowly and deeply into the muscle. Not for use > 4 days Inactive 11/09/2013 [facility] Sodium Chloride 0.154 MEQ/ML Injectable Solution 1,000 mL, 1,000 ml/hr, Infuse Over: 1 hr, Route: IV, 1,000, Drug form: INJ, ONCE, Priority: STAT, Dosing Weight 83.636 kg, Start date: 11/08/13 20:10:00, Duration: 1 doses or times, Stop date: 11/08/13 20:10:00 Inactive 11/09/2013 [facility] Saline Flush 0.9% 5 mL, Route: IVP, Drug Form: INJ, Dosing Weight 83.636, kg, PRN, PRN Line Flush, Start date: 11/08/13 18:54:00, Duration: 24 hr, Stop date: 11/09/13 18:53:00Notes: (Same as: BD Posiflush) Inactive 11/08/2013 [facility] Allergies, Adverse Reactions, Alerts Substance Category Reaction Severity Reaction type Status Date Reported Comments Source Reglan Assertion Drug allergy Active [facility] Immunizations Immunization Date Given Site Status Last Updated Comments Source Results Order Name Results Value Reference Range Date Interpretation Comments Source URINE AND STOOL UA Mucus Few /LPF None Seen /LPF 04/08/2015 [facility] URINE AND STOOL UA RBC None Seen (04/08/15 8:58 AM) 0 - 2 04/08/2015 [facility] URINE AND STOOL UA Bacteria Few /HPF None Seen /HPF 04/08/2015 [facility] URINE AND STOOL UA Sq Epi Few /LPF Few /LPF 04/08/2015 [facility] URINE AND STOOL UA WBC 0-2 /HPF None Seen /HPF 04/08/2015 [facility] URINE AND STOOL Micro? Performed (04/08/15 8:58 AM) 04/08/2015 [facility] URINE AND STOOL UA Nitrite Negative (04/08/15 8:58 AM) Negative 04/08/2015 [facility] URINE AND STOOL UA Urobilinogen 0.2 EU/dL 0.1 - 1.0 04/08/2015 [facility] URINE AND STOOL UA Leuk Est Negative (04/08/15 8:58 AM) Negative 04/08/2015 [facility] URINE AND STOOL UA Bili Negative *NA* (04/08/15 8:58 AM) Negative 04/08/2015 [facility] URINE AND STOOL UA Blood Negative (04/08/15 8:58 AM) Negative 04/08/2015 [facility] URINE AND STOOL UA Glucose Negative mg/dL Negative mg/dL 04/08/2015 [facility] URINE AND STOOL UA Ketones Negative mg/dL Negative mg/dL 04/08/2015 [facility] URINE AND STOOL UA Protein Negative mg/dL Negative mg/dL 04/08/2015 [facility] URINE AND STOOL UA pH 6.0 5.0 - 8.0 04/08/2015 [facility] URINE AND STOOL UA Spec Grav 1.025 <=1.030 04/08/2015 [facility] URINE AND STOOL UA Turbidity Clear (04/08/15 8:58 AM) Clear 04/08/2015 [facility] URINE AND STOOL UA Color Yellow *NA* (04/08/15 8:58 AM) Yellow 04/08/2015 [facility] URINE CHEM U Preg Negative (04/08/15 8:58 AM) Negative 04/08/2015 [facility] URINE AND STOOL UA Bacteria None Seen (02/20/15 12:25 PM) None Seen 02/20/2015 [facility] URINE AND STOOL UA RBC None Seen (02/20/15 12:25 PM) 0 - 2 02/20/2015 [facility] URINE AND STOOL UA WBC None Seen (02/20/15 12:25 PM) None Seen 02/20/2015 [facility] URINE AND STOOL UA Sq Epi Occasional /LPF Few /LPF 02/20/2015 [facility] URINE AND STOOL UA Color Yellow *NA* (02/20/15 12:25 PM) Yellow 02/20/2015 [facility] URINE AND STOOL UA Spec Grav 1.015 <=1.030 02/20/2015 [facility] URINE AND STOOL UA Turbidity Clear (02/20/15 12:25 PM) Clear 02/20/2015 [facility] URINE AND STOOL UA Protein Negative mg/dL Negative mg/dL 02/20/2015 [facility] URINE AND STOOL UA pH 6.5 5.0 - 8.0 02/20/2015 [facility] URINE AND STOOL UA Leuk Est Negative (02/20/15 12:25 PM) Negative 02/20/2015 [facility] URINE AND STOOL UA Ketones Negative mg/dL Negative mg/dL 02/20/2015 [facility] URINE AND STOOL UA Glucose Negative mg/dL Negative mg/dL 02/20/2015 [facility] URINE AND STOOL UA Bili Negative *NA* (02/20/15 12:25 PM) Negative 02/20/2015 [facility] URINE AND STOOL UA Urobilinogen 0.2 EU/dL 0.1 - 1.0 02/20/2015 [facility] URINE AND STOOL UA Blood Negative (02/20/15 12:25 PM) Negative 02/20/2015 [facility] URINE AND STOOL UA Nitrite Negative (02/20/15 12:25 PM) Negative 02/20/2015 [facility] URINE CHEM U Preg Negative (02/20/15 12:25 PM) Negative 02/20/2015 [facility] CHEM PANEL Lactic Acid Lvl 0.5 mMol/L 0.5 - 2.2 02/20/2015 [facility] CHEM PANEL eGFR 125 mL/min/1.73m2 02/20/2015 Result Comment: The eGFR is calculated using the [...] from the National Kidney Disease Education Program (NKDEP) which additionally recommends that when the eGFR is used in patients with extremes of body mass index for purposes of drug dosing, the eGFR should be multiplied by the estimated BMI. [facility] CHEM PANEL Sodium Lvl 140 meq/L 135 - 145 02/20/2015 [facility] CHEM PANEL ALT 38 unit/L 0 - 65 02/20/2015 [facility] CHEM PANEL Bili Total 1.0 mg/dL 0.2 - 1.3 02/20/2015 [facility] CHEM PANEL CO2 28 meq/L 24 - 32 02/20/2015 [facility] CHEM PANEL Calcium Lvl 8.7 mg/dL 8.5 - 10.5 02/20/2015 [facility] CHEM PANEL Chloride Lvl 106 meq/L 95 - 109 02/20/2015 [facility] CHEM PANEL Potassium Lvl 3.9 meq/L 3.5 - 5.1 02/20/2015 [facility] CHEM PANEL Creatinine Lvl 0.6 mg/dL 0.5 - 1.4 02/20/2015 [facility] CHEM PANEL Glucose Lvl 84 mg/dL 70 - 99 02/20/2015 [facility] CHEM PANEL BUN 7 mg/dL 7 - 22 02/20/2015 [facility] CHEM PANEL Alk Phos 96 unit/L 39 - 136 02/20/2015 [facility] CHEM PANEL Albumin Lvl 4.1 g/dL 3.5 - 5.0 02/20/2015 [facility] CHEM PANEL AST 24 unit/L 0 - 37 02/20/2015 [facility] CHEM PANEL Total Protein 7.1 g/dL 6.4 - 8.4 02/20/2015 [facility] CHEM PANEL A/G Ratio 1.4 0.7 - 1.6 02/20/2015 [facility] CHEM PANEL Globulin 3.0 g/dL 2.0 - 4.0 02/20/2015 [facility] CHEM PANEL B/C Ratio 12 6 - 25 02/20/2015 [facility] CHEM PANEL AGAP 9.9 meq/L 10.0 - 20.0 02/20/2015 [facility] HEMATOLOGY Monocytes 9.0 % 2.0 - 12.0 02/20/2015 [facility] HEMATOLOGY Eosinophils 1.4 % 0.0 - 4.0 02/20/2015 [facility] HEMATOLOGY Basophils 0.6 % 0.0 - 1.0 02/20/2015 [facility] HEMATOLOGY Segs-Bands # 3.5 K/CMM 1.5 - 8.1 02/20/2015 [facility] HEMATOLOGY Lymphocytes 24.5 % 20.0 - 40.0 02/20/2015 [facility] HEMATOLOGY Lymphocytes # 1.3 K/CMM 1.0 - 5.5 02/20/2015 [facility] HEMATOLOGY Monocytes # 0.5 K/CMM 0.0 - 0.8 02/20/2015 [facility] HEMATOLOGY Eosinophils # 0.1 K/CMM 0.0 - 0.5 02/20/2015 [facility] HEMATOLOGY Segs 64.5 % 45.0 - 75.0 02/20/2015 [facility] HEMATOLOGY MPV 8.9 fL 7.4 - 10.4 02/20/2015 [facility] HEMATOLOGY Platelet 235 K/CMM 133 - 450 02/20/2015 [facility] HEMATOLOGY Hct 37.4 % 36.0 - 48.0 02/20/2015 [facility] HEMATOLOGY MCHC 33.5 g/dL 32.0 - 36.0 02/20/2015 [facility] HEMATOLOGY RDW 13.8 % 11.5 - 14.5 02/20/2015 [facility] HEMATOLOGY MCV 95.8 fL 80.0 - 98.0 02/20/2015 [facility] HEMATOLOGY MCH 32.1 pg 27.0 - 31.0 02/20/2015 [facility] HEMATOLOGY RBC 3.90 M/CMM 4.20 - 5.40 02/20/2015 [facility] HEMATOLOGY Hgb 12.5 g/dL 12.0 - 16.0 02/20/2015 [facility] HEMATOLOGY WBC 5.5 K/CMM 3.7 - 10.4 02/20/2015 [facility] Spine lumbar series DX Spine lumbar series DX EXAM: AP, lateral, and oblique radiographs of the lumbar spine. INDICATION: Pain, trauma. COMPARISON: None available. FINDINGS: 5 nonrib-bearing lumbar type vertebral bodies are present. Vertebral bodies are normal in height and alignment. No fracture or subluxation identified. Disc spaces are well-maintained. Prevertebral soft tissues are within normal limits. IMPRESSION: No acute osseous findings. SL: 23 01/17/2015 - - Read by: Chucky Moore MD Dictated Date/time: 01/17/15 21:08 Electronically Signed by: Chucky Moore MD 01/17/15 21:09 FINAL REPORT [facility] URINE CHEM U Preg Negative (01/03/14 11:10 PM) Negative 01/04/2014 [facility] URINE AND STOOL UA Urobilinogen 0.2 EU/dL 0.1 - 1.0 01/04/2014 [facility] URINE AND STOOL UA Nitrite Negative (01/03/14 8:44 PM) Negative 01/04/2014 [facility] URINE AND STOOL UA Leuk Est Negative (01/03/14 8:44 PM) Negative 01/04/2014 [facility] URINE AND STOOL UA Bili Negative *NA* (01/03/14 8:44 PM) Negative 01/04/2014 [facility] URINE AND STOOL UA Ketones Negative *NA* (01/03/14 8:44 PM) Negative 01/04/2014 [facility] URINE AND STOOL UA Blood Large *ABN* (01/03/14 8:44 PM) Negative 01/04/2014 [facility] URINE AND STOOL UA Protein Negative (01/03/14 8:44 PM) Negative 01/04/2014 [facility] URINE AND STOOL UA Spec Grav 1.015 <=1.030 01/04/2014 [facility] URINE AND STOOL UA pH 6.0 5.0 - 8.0 01/04/2014 [facility] URINE AND STOOL UA Glucose Negative (01/03/14 8:44 PM) Negative 01/04/2014 [facility] URINE AND STOOL UA Turbidity Clear (01/03/14 8:44 PM) Clear 01/04/2014 [facility] URINE AND STOOL UA Color Yellow *NA* (01/03/14 8:44 PM) Yellow 01/04/2014 [facility] URINE AND STOOL UA RBC 0-2 /HPF 0 - 2 01/04/2014 [facility] URINE AND STOOL UA WBC None Seen (01/03/14 8:44 PM) None Seen 01/04/2014 [facility] URINE AND STOOL UA Sq Epi Rare /LPF Few /LPF 01/04/2014 [facility] URINE AND STOOL UA Bacteria None Seen (01/03/14 8:44 PM) None Seen 01/04/2014 [facility] Abdomen/Pelvis w IV contrast CT Abdomen/Pelvis w IV contrast CT Name: BHARATH PINEDA : 1985 SEX: F Ordering Physician: Sami Plasencia Abdomen/Pelvis w contrast CT : Jan 03, 2014 11:57:00 PM. CLINICAL INDICATION: Acute abdominal pain Comparison Examination: None TECHNIQUE: Sequential trans-axial images of the abdomen and pelvis were obtained with a multi-detector helical CT. Coronal and sagittal reconstructions were obtained. Contrast: 100 cc of Omnipaque Dose: The total exam DLP is 1110 mGy-cm. FINDINGS: CT ABDOMEN WITH CONTRAST: Small patchy left posterior lung densities are seen. Portions of the heart are within normal limits. The liver, spleen, pancreas, gallbladder, adrenals and kidneys are normal. Mild to moderate retained colorectal stool is seen. The appendix is well visualized, and is within normal limits.>] There is no abdominal lymphadenopathy, pneumoperitoneum or ascites. No aortic fibrocalcific atherosclerosis is present.>] The inferior vena cava is within normal limits. FINDINGS: CT PELVIS WITH CONTRAST: The bladder is normal. Multiple small bilateral ovarian follicles are seen. No acute skeletal abnormality. IMPRESSION: 1. Mild to moderate retained colorectal stool. SL: 24 01/03/2014 - - Read by: Diego Parra MD Dictated Date/time: 01/04/14 00:24 Electronically Signed by: Diego Parra MD 01/04/14 00:29 FINAL REPORT [facility] CHEM PANEL Lipase Lvl 95 unit/L 73 - 393 01/03/2014 [facility] CHEM PANEL eGFR 126 mL/min/1.73m2 01/03/2014 1Result Comment: The eGFR is calculated using [...] from the National Kidney Disease Education Program (NKDEP) which additionally recommends that when the eGFR is used in patients with extremes of body mass index for purposes of drug dosing, the eGFR should be multiplied by the estimated BMI. [facility] CHEM PANEL Alk Phos 99 unit/L 39 - 136 01/03/2014 [facility] CHEM PANEL Bili Total 1.2 mg/dL 0.2 - 1.3 01/03/2014 [facility] CHEM PANEL Total Protein 8.1 g/dL 6.4 - 8.4 01/03/2014 [facility] CHEM PANEL Albumin Lvl 4.3 g/dL 3.5 - 5.0 01/03/2014 [facility] CHEM PANEL ALT 32 unit/L 0 - 65 01/03/2014 [facility] CHEM PANEL AST 24 unit/L 0 - 37 01/03/2014 [facility] CHEM PANEL Potassium Lvl 3.8 meq/L 3.5 - 5.1 01/03/2014 [facility] CHEM PANEL Chloride Lvl 104 meq/L 95 - 109 01/03/2014 [facility] CHEM PANEL Calcium Lvl 9.3 mg/dL 8.5 - 10.5 01/03/2014 [facility] CHEM PANEL CO2 28 meq/L 24 - 32 01/03/2014 [facility] CHEM PANEL Creatinine Lvl 0.6 mg/dL 0.5 - 1.4 01/03/2014 [facility] CHEM PANEL Sodium Lvl 138 meq/L 135 - 145 01/03/2014 [facility] CHEM PANEL Glucose Lvl 85 mg/dL 70 - 99 01/03/2014 2Interpretive Data: Adult reference range values reflect the clinical guidelines of the [place] [employer]. [facility] CHEM PANEL BUN 11 mg/dL 7 - 22 01/03/2014 [facility] CHEM PANEL B/C Ratio 18 6 - 25 01/03/2014 [facility] CHEM PANEL AGAP 9.8 meq/L 10.0 - 20.0 01/03/2014 [facility] CHEM PANEL Globulin 3.8 g/dL 2.0 - 4.0 01/03/2014 [facility] CHEM PANEL A/G Ratio 1.1 0.7 - 1.6 01/03/2014 [facility] CHEM PANEL Amylase Lvl 63 unit/L 25 - 115 01/03/2014 [facility] HEMATOLOGY RBC 4.64 M/CMM 4.20 - 5.40 01/03/2014 [facility] HEMATOLOGY Hgb 15.0 g/dL 12.0 - 16.0 01/03/2014 [facility] HEMATOLOGY WBC 8.2 K/CMM 3.7 - 10.4 01/03/2014 [facility] HEMATOLOGY RDW 12.9 % 11.5 - 14.5 01/03/2014 [facility] HEMATOLOGY MCV 91.3 fL 80.0 - 98.0 01/03/2014 [facility] HEMATOLOGY Hct 42.4 % 36.0 - 48.0 01/03/2014 [facility] MCHC 35.3 g/dL 32.0 - 36.0 01/03/2014 [facility] MCH 32.3 pg 27.0 - 31.0 01/03/2014 [facility] MPV 9.1 fL 7.4 - 10.4 01/03/2014 [facility] HEMATOLOGY Platelet 214 K/CMM 133 - 450 01/03/2014 [facility] HEMATOLOGY Monocytes # 0.4 K/CMM 0.0 - 0.8 01/03/2014 [facility] HEMATOLOGY Lymphocytes # 2.2 K/CMM 1.0 - 5.5 01/03/2014 [facility] HEMATOLOGY Eosinophils # 0.2 K/CMM 0.0 - 0.5 01/03/2014 [facility] HEMATOLOGY Segs 65.6 % 45.0 - 75.0 01/03/2014 [facility] Monocytes 5.2 % 2.0 - 12.0 01/03/2014 [facility] HEMATOLOGY Lymphocytes 26.8 % 20.0 - 40.0 01/03/2014 [facility] HEMATOLOGY Basophils 0.4 % 0.0 - 1.0 01/03/2014 [facility] HEMATOLOGY Eosinophils 2.0 % 0.0 - 4.0 01/03/2014 [facility] HEMATOLOGY Segs-Bands # 5.3 K/CMM 1.5 - 8.1 01/03/2014 [facility] Abdomen RUQ US Abdomen RUQ US Name: BHARATH PINEDA : 1985 SEX: F Ordering Physician: Sami Plasencia Abdomen RUQ US : Jan 03, 2014 10:46:00 PM. CLINICAL INDICATION: Abdominal pain, acute Comparison Examination: None TECHNIQUE: Realtime sonographic evaluation of the RUQ is performed. FINDINGS: The liver is normal in size and echotexture and demonstrates no focal masses or intrahepatic biliary ductal dilation. The gallbladder is also sonographically unremarkable without wall thickening or gallstones. There is no pericholecystic fluid. The common bile duct is normal, measuring 3 mm in diameter at the darwin hepatis. The visualized portions of the pancreas are sonographically unremarkable. The visualized aorta and IVC are within normal limits. The right kidney is normal in echotexture and demonstrate no solid masses or hydronephrosis. The right kidney measures 11.1 x 3.9 x 6.0 cm. IMPRESSION: Negative sonographic evaluation of the RUQ. SL: 24 01/03/2014 - - Read by: Whit Ni MD Dictated Date/time: 01/03/14 22:57 Electronically Signed by: Whit Ni MD 01/03/14 22:58 FINAL REPORT [facility] URINE AND STOOL UA Protein Negative (11/08/13 7:59 PM) Negative 11/09/2013 [facility] URINE AND STOOL UA Glucose Negative (11/08/13 7:59 PM) Negative 11/09/2013 [facility] URINE AND STOOL UA Blood Negative (11/08/13 7:59 PM) Negative 11/09/2013 [facility] URINE AND STOOL UA Bili Negative *NA* (11/08/13 7:59 PM) Negative 11/09/2013 [facility] URINE AND STOOL UA Ketones Negative *NA* (11/08/13 7:59 PM) Negative 11/09/2013 [facility] URINE AND STOOL UA Urobilinogen 0.2 EU/dL 0.1 - 1.0 11/09/2013 [facility] URINE AND STOOL UA Leuk Est Negative (11/08/13 7:59 PM) Negative 11/09/2013 [facility] URINE AND STOOL UA Nitrite Negative (11/08/13 7:59 PM) Negative 11/09/2013 [facility] URINE AND STOOL UA Color Yellow *NA* (11/08/13 7:59 PM) Yellow 11/09/2013 [facility] URINE AND STOOL UA Spec Grav >=1.030 *ABN* (11/08/13 7:59 PM) <=1.030 11/09/2013 [facility] URINE AND STOOL UA Turbidity Clear (11/08/13 7:59 PM) Clear 11/09/2013 [facility] URINE AND STOOL UA pH 6.0 5.0 - 8.0 11/09/2013 [facility] URINE AND STOOL UA Bacteria None Seen (11/08/13 7:59 PM) None Seen 11/09/2013 [facility] URINE AND STOOL UA RBC None Seen (11/08/13 7:59 PM) 0 - 2 11/09/2013 [facility] URINE AND STOOL UA WBC None Seen (11/08/13 7:59 PM) None Seen 11/09/2013 [facility] URINE AND STOOL UA Sq Epi Rare /LPF Few /LPF 11/09/2013 [facility] URINE AND STOOL Micro? Performed (11/08/13 7:59 PM) 11/09/2013 [facility] CHEM PANEL Lipase Lvl 157 unit/L 73 - 393 11/09/2013 [facility] CHEM PANEL eGFR 120 mL/min/1.73m2 11/09/2013 1Result Comment: The eGFR is calculated using [...] from the National Kidney Disease Education Program (NKDEP) which additionally recommends that when the eGFR is used in patients with extremes of body mass index for purposes of drug dosing, the eGFR should be multiplied by the estimated BMI. [facility] CHEM PANEL Alk Phos 96 unit/L 39 - 136 11/09/2013 [facility] CHEM PANEL Bili Total 0.8 mg/dL 0.2 - 1.3 11/09/2013 [facility] CHEM PANEL ALT 32 unit/L 0 - 65 11/09/2013 [facility] CHEM PANEL Chloride Lvl 108 meq/L 95 - 109 11/09/2013 [facility] CHEM PANEL CO2 27 meq/L 24 - 32 11/09/2013 [facility] CHEM PANEL Total Protein 7.5 g/dL 6.4 - 8.4 11/09/2013 [facility] CHEM PANEL Albumin Lvl 4.2 g/dL 3.5 - 5.0 11/09/2013 [facility] CHEM PANEL AST 19 unit/L 0 - 37 11/09/2013 [facility] CHEM PANEL Calcium Lvl 9.0 mg/dL 8.5 - 10.5 11/09/2013 [facility] CHEM PANEL Glucose Lvl 81 mg/dL 70 - 99 11/09/2013 2Interpretive Data: Adult reference range values reflect the clinical guidelines of the [place] [employer]. [facility] CHEM PANEL Sodium Lvl 143 meq/L 135 - 145 11/09/2013 [facility] CHEM PANEL Potassium Lvl 3.8 meq/L 3.5 - 5.1 11/09/2013 [facility] CHEM PANEL BUN 16 mg/dL 7 - 22 11/09/2013 [facility] CHEM PANEL Creatinine Lvl 0.7 mg/dL 0.5 - 1.4 11/09/2013 [facility] CHEM PANEL A/G Ratio 1.3 0.7 - 1.6 11/09/2013 [facility] CHEM PANEL Globulin 3.3 g/dL 2.0 - 4.0 11/09/2013 [facility] CHEM PANEL B/C Ratio 23 6 - 25 11/09/2013 [facility] CHEM PANEL AGAP 11.8 meq/L 10.0 - 20.0 11/09/2013 [facility] Platelet 185 K/CMM 133 - 450 11/09/2013 [facility] MPV 9.7 fL 7.4 - 10.4 11/09/2013 [facility] Hgb 14.0 g/dL 12.0 - 16.0 11/09/2013 [facility] MCV 90.6 fL 81.0 - 99.0 11/09/2013 [facility] Hct 40.6 % 36.0 - 48.0 11/09/2013 [facility] RDW 13.2 % 11.5 - 14.5 11/09/2013 [facility] MCH 31.4 pg 27.0 - 31.0 11/09/2013 [facility] MCHC 34.6 g/dL 32.0 - 36.0 11/09/2013 [facility] WBC 8.0 K/CMM 3.7 - 10.4 11/09/2013 [facility] RBC 4.48 M/CMM 4.20 - 5.40 11/09/2013 [facility] HEMATOLOGY Eosinophils # 0.2 K/CMM 0.0 - 0.5 11/09/2013 [facility] Lymphocytes 26.8 % 20.0 - 40.0 11/09/2013 [facility] HEMATOLOGY Segs 63.9 % 45.0 - 75.0 11/09/2013 [facility] HEMATOLOGY Eosinophils 1.9 % 0.0 - 4.0 11/09/2013 [facility] HEMATOLOGY Monocytes 6.9 % 2.0 - 12.0 11/09/2013 [facility] HEMATOLOGY Basophils 0.5 % 0.0 - 1.0 11/09/2013 [facility] HEMATOLOGY Monocytes # 0.6 K/CMM 0.0 - 0.8 11/09/2013 [facility] HEMATOLOGY Lymphocytes # 2.2 K/CMM 1.0 - 5.5 11/09/2013 [facility] HEMATOLOGY Segs-Bands # 5.1 K/CMM 1.5 - 8.1 11/09/2013 [facility] Abdomen RUQ US Abdomen RUQ US NAME: BHARATH PINEDA : 1985 SEX: F Ordering Physician: Becky Sullivan Abdomen RUQ US : Nov 08, 2013 08:54:00 PM. CLINICAL INDICATION: Abdominal pain, acute / See Clinic Indication Comparison Examination: None. FINDINGS: Liver is diffusely echogenic compatible with fatty infiltration. No focal hepatic masses. No intrahepatic biliary ductal dilatation. Gallbladder is contracted without stones. Mild wall thickening likely related to contraction. Common bile duct is normal measuring 3 mm. Right kidney measures 10.1 cm in length. No solid renal masses or hydronephrosis. No echogenic foci to suggest renal calculi. The visualized pancreas is unremarkable. The visualized abdominal aorta and IVC appear within normal limits. IMPRESSION: 1. Fatty liver. 2. Contracted gallbladder without cholelithiasis. SL: 24 11/08/2013 - - Read by: Isaac Horan MD Dictated Date/time: 11/08/13 21:00 Electronically Signed by: Isaac Horan MD 11/08/13 21:01 FINAL REPORT [facility] URINALYSIS UA Glucose Negative mg/dL (10/09/2011 07:48:00) Negative 10/09/2011 Normal [facility] URINALYSIS UA Protein Negative mg/dL (10/09/2011 07:48:00) Negative 10/09/2011 Normal [facility] URINALYSIS UA Spec Grav 1.025 <=1.030 10/09/2011 Normal [facility] URINALYSIS UA pH 5.0 5.0 - 8.0 10/09/2011 Normal [facility] URINALYSIS UA Turbidity Clear (10/09/2011 07:48:00) Clear 10/09/2011 Normal [facility] URINALYSIS UA Color Yellow *NA* (10/09/2011 07:48:00) Yellow 10/09/2011 NA [facility] URINALYSIS UA Leuk Est Negative (10/09/2011 07:48:00) Negative 10/09/2011 Normal [facility] URINALYSIS Micro? Not Indicated *NA* (10/09/2011 07:48:00) 10/09/2011 NA [facility] URINALYSIS UA Urobilinogen 0.2 EU/dL 0.1 - 1.0 10/09/2011 Normal [facility] URINALYSIS UA Nitrite Negative (10/09/2011 07:48:00) Negative 10/09/2011 Normal [facility] URINALYSIS UA Blood Negative (10/09/2011 07:48:00) Negative 10/09/2011 Normal [facility] URINALYSIS UA Ketones Negative mg/dL *NA* (10/09/2011 07:48:00) Negative 10/09/2011 NA [facility] URINALYSIS UA Bili Negative *NA* (10/09/2011 07:48:00) Negative 10/09/2011 NA [facility] CHEMISTRY AGAP 9.9 meq/L 10.0 - 20.0 10/09/2011 LOW [facility] CHEMISTRY Calcium Lvl 8.8 mg/dL 8.5 - 10.5 10/09/2011 Normal [facility] CHEMISTRY Chloride Lvl 105 meq/L 95 - 109 10/09/2011 Normal [facility] CHEMISTRY CO2 27 meq/L 24 - 32 10/09/2011 Normal [facility] CHEMISTRY Glucose Lvl 99 mg/dL 70 - 99 10/09/2011 Normal 1Interpretive Data: Adult reference range values reflect the clinical guidelinesof the [place] [employer]. [facility] CHEMISTRY BUN 12 mg/dL 7 - 22 10/09/2011 Normal [facility] CHEMISTRY Creatinine Lvl 0.8 mg/dL 0.5 - 1.4 10/09/2011 Normal [facility] CHEMISTRY Sodium Lvl 138 meq/L 135 - 145 10/09/2011 Normal [facility] CHEMISTRY Potassium Lvl 3.9 meq/L 3.5 - 5.1 10/09/2011 Normal [facility] HEMATOLOGY Hct 36.7 % 36.0 - 48.0 10/09/2011 Normal [facility] HEMATOLOGY WBC 5.8 K/CMM 3.7 - 10.4 10/09/2011 Normal [facility] HEMATOLOGY RBC 4.39 M/CMM 4.20 - 5.40 10/09/2011 Normal [facility] HEMATOLOGY Hgb 12.0 g/dL 12.0 - 16.0 10/09/2011 Normal [facility] HEMATOLOGY Platelet 220 K/CMM 133 - 450 10/09/2011 Normal [facility] HEMATOLOGY MPV 9.4 fL 7.4 - 10.4 10/09/2011 Normal [facility] HEMATOLOGY RDW 17.9 % 11.5 - 14.5 10/09/2011 HI [facility] HEMATOLOGY MCHC 32.8 g/dL 32.0 - 36.0 10/09/2011 Normal [facility] HEMATOLOGY MCV 83.5 fL 81.0 - 99.0 10/09/2011 Normal [facility] HEMATOLOGY MCH 27.4 pg 27.0 - 31.0 10/09/2011 Normal [facility] HEMATOLOGY Basophils # 0.0 K/CMM 0.0 - 0.2 10/09/2011 Normal [facility] HEMATOLOGY Basophils 0.8 % 0.0 - 1.0 10/09/2011 Normal [facility] HEMATOLOGY Lymphocytes # 1.7 K/CMM 1.0 - 5.5 10/09/2011 Normal [facility] HEMATOLOGY Monocytes # 0.4 K/CMM 0.0 - 0.8 10/09/2011 Normal [facility] HEMATOLOGY Eosinophils # 0.1 K/CMM 0.0 - 0.5 10/09/2011 Normal [facility] HEMATOLOGY Segs-Bands # 3.4 K/CMM 1.5 - 8.1 10/09/2011 Normal [facility] HEMATOLOGY Lymphocytes 30.4 % 20.0 - 40.0 10/09/2011 Normal [facility] HEMATOLOGY Monocytes 7.2 % 2.0 - 12.0 10/09/2011 Normal [facility] HEMATOLOGY Eosinophils 1.8 % 0.0 - 4.0 10/09/2011 Normal [facility] HEMATOLOGY Segs 59.8 % 45.0 - 75.0 10/09/2011 Normal [facility] IMMUNOLOGY CDC-HIV 1/2 Ab Negative *NA* (10/09/2011 07:25:00) Negative 10/09/2011 NA [facility] Vital Signs Vital Sign Value Date Comments Source BMI Calculated 29.29 04/08/2015 [facility] Weight 75 04/08/2015 [facility] Height 160.02 cm 04/08/2015 [facility] Heart Rate 79 04/08/2015 [facility] Systolic (mm Hg) 113 04/08/2015 [facility] Diastolic (mm Hg) 68 04/08/2015 [facility] Temperature Oral (F) 98.2 F 04/08/2015 [facility] Respitory Rate 18 04/08/2015 [facility] Systolic (mm Hg) 115 02/20/2015 [facility] Diastolic (mm Hg) 76 02/20/2015 [facility] Temperature Oral (F) 98 F 02/20/2015 [facility] Heart Rate 70 02/20/2015 [facility] Respitory Rate 18 02/20/2015 [facility] Systolic (mm Hg) 128 02/20/2015 [facility] Diastolic (mm Hg) 77 02/20/2015 [facility] Heart Rate 73 02/20/2015 [facility] Respitory Rate 18 02/20/2015 [facility] Temperature Oral (F) 98.2 F 02/20/2015 [facility] Weight 75.455 02/20/2015 [facility] Temperature Oral (F) 98.6 F 01/18/2015 [facility] Heart Rate 64 01/18/2015 [facility] Respitory Rate 18 01/18/2015 [facility] Systolic (mm Hg) 105 01/18/2015 [facility] Diastolic (mm Hg) 64 01/18/2015 [facility] BMI Calculated 29.82 01/17/2015 [facility] Weight 76.364 01/17/2015 [facility] Height 160.02 cm 01/17/2015 [facility] Heart Rate 90 01/17/2015 [facility] Respitory Rate 18 01/17/2015 [facility] Systolic (mm Hg) 141 01/17/2015 [facility] Diastolic (mm Hg) 91 01/17/2015 [facility] Temperature Oral (F) 98.2 F 01/17/2015 [facility] BMI Calculated 31.24 08/10/2014 [facility] Temperature Oral (F) 99.4 F 08/10/2014 [facility] Height 160.02 cm 08/10/2014 [facility] Respitory Rate 18 08/10/2014 [facility] Weight 80 08/10/2014 [facility] Systolic (mm Hg) 119 08/10/2014 [facility] Diastolic (mm Hg) 65 08/10/2014 [facility] Heart Rate 77 08/10/2014 [facility] Diastolic (mm Hg) 75 01/04/2014 [facility] Systolic (mm Hg) 116 01/04/2014 [facility] Respitory Rate 16 01/04/2014 [facility] Heart Rate 71 01/04/2014 [facility] Temperature Oral (F) 97.0 F 01/04/2014 [facility] Weight 82.273 01/04/2014 [facility] BMI Calculated 32.13 01/04/2014 [facility] Height 160.02 cm 01/04/2014 [facility] Systolic (mm Hg) 112 01/04/2014 [facility] Diastolic (mm Hg) 71 01/04/2014 [facility] Heart Rate 64 01/04/2014 [facility] Respitory Rate 18 01/04/2014 [facility] Temperature Oral (F) 97.6 F 01/03/2014 [facility] Heart Rate 65 01/03/2014 [facility] Systolic (mm Hg) 126 01/03/2014 [facility] Diastolic (mm Hg) 83 01/03/2014 [facility] Respitory Rate 18 01/03/2014 [facility] Temperature Oral (F) 97.7 F 01/03/2014 [facility] Weight 82.273 01/03/2014 [facility] Height 160.02 cm 01/03/2014 [facility] BMI Calculated 32.13 01/03/2014 [facility] Respitory Rate 18 11/08/2013 [facility] Temperature Oral (F) 98.4 F 11/08/2013 [facility] Heart Rate 69 11/08/2013 [facility] Diastolic (mm Hg) 63 11/08/2013 [facility] Systolic (mm Hg) 119 11/08/2013 [facility] Weight 83.636 11/08/2013 [facility] BMI Calculated 32.66 11/08/2013 [facility] Height 160.02 cm 11/08/2013 [facility] Height 157.48 cm 10/09/2011 [facility] Weight 82.784 10/09/2011 [facility] Encounters Location Location Details Encounter Type Encounter Number Reason For Visit Attending Provider ADM Date DC Date Status Source Not Sent Emergency [id number] SOPHIE HARGROVE 10/09/2011 10/09/2011 Active [facility] [id number] Hasmukh Julian 11/08/2013 11/09/2013 [facility] [id number] Josemanuel Vaz Jr 01/03/2014 01/04/2014 [facility] [id number] Sawyer Gordon 08/10/2014 08/11/2014 [facility] [id number] Josemanuel Vaz Jr 01/17/2015 01/18/2015 [facility] [id number] Ovi Gomez 02/20/2015 02/20/2015 [facility] [id number] Rosi Whittington 04/08/2015 04/08/2015 [facility] Outpatient [id number] BHARATHI STEVENSON 01/21/2018 Active [facility] Procedures Procedure Code Date Perfomer Comments Source Operation [id number] 01/30/2015 [facility] section [id number] [facility]
--- OUTSIDE RECORDS SUMMARY | 2018-02-28 17:59 | XMS REPORT ---
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 Allergies, Adverse Reactions, Alerts This patient has no known allergies or adverse reactions. Medications This patient has no known medications. Encounters Start Date/Time End Date/Time Encounter Type Admission Type Attending [facility] Care Facility Care Department Encounter ID [id number] 00:00:00 2016-12-15 00:00:00 Outpatient [facility] [id number] 2016-11-18 00:00:00 2016-11-18 00:00:00 Outpatient [facility] [id number] 2016-11-17 07:54:57 2016-11-17 07:54:57 Outpatient [facility] [id number]
--- OUTSIDE RECORDS SUMMARY | 2018-02-28 17:59 | XMS REPORT | Summary of Care ---
Author Author [facility] Organization [facility] Address Unknown Phone Unavailable Encounter NATANAEL Rogel(DALTON) [id number] Date(s): 02/20/15 - 02/20/15 [facility] [address], [place], [place] [address]- [phone] Discharge Diagnosis: Acute back pain Discharge Disposition: Home Attending Physician: Ovi Gomez MD Vital Signs Most recent to 1 [...] Substance Reaction Severity Status Reglan Active Medications [place] 10/325 oral tablet 1 tab, Route: PO, [...]
--- OUTSIDE RECORDS SUMMARY | 2018-02-28 17:59 | XMS REPORT | Summary of Care ---
Author Author [facility] Organization [facility] Address Unknown Phone Unavailable Encounter NATANAEL Rogel(DALTON) [id number] Date(s): 04/08/15 - 04/08/15 [facility] [address] [place], [place] [address]- [phone] Discharge Diagnosis: Withdrawal from opioids Discharge Disposition: Home Attending Physician: Rosi Whittington MD Vital Signs Most recent to 1 oldest [Reference Range]: Height 160.02 cm (04/08/15 8:42 AM) Temperature Oral 98.2 DegF [96.4-99.1 DegF] (04/08/15 8:42 AM) Blood Pressure 113/68 mmHg [90-140/60-90 mmHg] (04/08/15 8:42 AM) Respiratory Rate 18 BRMIN [14-20 BRMIN] (04/08/15 8:42 AM) Peripheral Pulse 79 bpm Rate [60-100 bpm] (04/08/15 8:42 AM) Weight 75 kg (04/08/15 8:42 AM) Body Mass Index 29.29 m2 (04/08/15 8:42 AM) Problem List Condition Effective Dates Status Health Status Informant Chronic back Active pain(Confirmed) Allergies, Adverse Reactions, Alerts Substance Reaction Severity Status Reglan Active Medications Anaprox-DS 550 mg oral tablet 550 mg=1 tab, PO, BID, PRN for pain, X 10 day, # 30 tab, 0 Refill(s) Start Date: 04/08/15 Stop Date: 04/18/15 Status: Ordered Unisom 25 mg oral tablet 25 mg=1 tab, PO, Bedtime, PRN for sleep, X 7 day, # 7 tab, 0 Refill(s) Start Date: 04/08/15 Stop Date: 04/15/15 Status: Ordered Zofran ODT 4 mg, Route: PO, Drug form: TABDIS, ONCE, Dosing Weight 75, kg, Priority: STAT, Start date: 04/08/15 8:54:00, Stop date: 04/08/15 8:54:00 Start Date: 04/08/15 Stop Date: 04/08/15 Status: Completed Zofran ODT 4 mg oral tablet, disintegrating 4 mg=1 tab, PO, TID, PRN Nausea and Vomiting, Dissolve tab under tongue, X 3 day , # 15 tab, 0 Refill(s) Start Date: 04/08/15 Stop Date: 04/11/15 Status: Ordered Results URINE CHEM Most recent to 1 oldest [Reference Range]: U Preg [Negative] Negative (04/08/15 8:58 AM) URINE AND STOOL Most recent to 1 oldest [Reference Range]: UA Turbidity [Clear] Clear (04/08/15 8:58 AM) UA Color [Yellow] Yellow *NA* (04/08/15 8:58 AM) UA pH [5.0-8.0] 6.0 (04/08/15 8:58 AM) UA Spec Grav 1.025 [<=1.030] (04/08/15 8:58 AM) UA Glucose [Negative Negative mg/dL mg/dL] (04/08/15 8:58 AM) UA Blood [Negative] Negative (04/08/15 8:58 AM) UA Ketones [Negative Negative mg/dL mg/dL] *NA* (04/08/15 8:58 AM) UA Protein [Negative Negative mg/dL mg/dL] (04/08/15 8:58 AM) UA Urobilinogen 0.2 EU/dL [0.1-1.0 EU/dL] (04/08/15 8:58 AM) UA Bili [Negative] Negative *NA* (04/08/15 8:58 AM) UA Leuk Est Negative [Negative] (04/08/15 8:58 AM) UA Nitrite Negative [Negative] (04/08/15 8:58 AM) UA WBC [None Seen 0-2 /HPF /HPF] (04/08/15 8:58 AM) UA RBC [0-2] None Seen (04/08/15 8:58 AM) UA Bacteria [None Few /HPF Seen /HPF] (04/08/15 8:58 AM) UA Sq Epi [Few /LPF] Few /LPF (04/08/15 8:58 AM) UA Mucus [None Seen Few /LPF /LPF] (04/08/15 8:58 AM) Micro? Performed (04/08/15 8:58 AM) Immunizations No data available for this section Procedures Procedure Date Related Diagnosis Body Site Operation 01/30/15 section Social History Social History Type Response Substance Abuse Use: None. Alcohol Current, Last use: occasional. Smoking Status Never smoker; Exposure to Tobacco Smoke None; Cigarette Smoking Last 365 Days No; Reg Smoking Cessation Counseling No Assessment and Plan No data available for this section
--- NOTE | 2018-02-28 19:20 | Diagnostic Imaging Report ---
EXAMINATION: Left Hip Films CLINICAL HISTORY:Status post fall 2 weeks ago. Left hip pain COMPARISON: CT abdomen and pelvis without contrast 08/29/2015 DISCUSSION: The bones are well-mineralized. No acute, displaced fractures or dislocations. Joint spaces are preserved. No gross soft tissue abnormalities. No osteolytic or osteoblastic lesions. Orthopedic screw projects in the lower lumbosacral spine/sacrum IMPRESSION: 1. No acute abnormalities. Signed by: Dr. Surinder Hodge M.D. on 02/28/2018 7:17 PM
[2018-02-28] MEDS ORDERED: ROBAXIN-750750 MG PO (19:28)
== END 2018-02-28 19:39 | disposition home or self-care (01) ==
LOC: FSED 17:55
DX: S70.02XA Contusion of left hip, initial encounter (principal); W01.0XXA Fall on same level from slipping, tripping and stumbling without subsequent striking against object, initial encounter; Y92.008 Other place in unspecified non-institutional (private) residence as the place of occurrence of the external cause
CPT/HCPCS: 99283